=== PATIENT | female | born 1980 | race African-American/Black ===

== ENCOUNTER 2017-12-15 18:28 | Emergency (ER) | payer MEDICAID, OTHER ==
[~2017-12-15] VITALS: Ht 165.1 cm; Wt 88.0 kg
[~2017-12-15 18:28] MED LIST: IBUP200C5
[2017-12-15 20:02] LABS: CLARITY URINE CLEAR (CLEAR); COLOR URINE YELLOW (YELLOW); KETONES URINE TRACE (NEGATIVE); LEUKOCYTE ESTERASE URINE 2+ (NEGATIVE); NITRITE URINE NEGATIVE (NEGATIVE); OCCULT BLOOD URINE 1+ (NEGATIVE); PROTEIN URINE NEGATIVE (NEGATIVE); SPECIFIC GRAVITY URINE 1.035 (1.005-1.030)
[2017-12-15] MEDS ORDERED: ACETAMINOPHEN 325MG TABLET PO PRN (22:45)
[2017-12-15 23:26] LABS: BASOPHILS % 0.4 % (0.0-2.0); EOSINOPHILS % 3.7 % (0.0-5.0); HEMATOCRIT. 38.4 % (36.0-48.0); HEMOGLOBIN. 12.7 g/dL (12.0-16.0); MEAN CORPUSCULAR HEMOGLOBIN 29.7 pg (28.0-32.0); MEAN CORPUSCULAR VOLUME 89.3 fL (81.0-99.0); NEUTROPHILS % 55.9 % (40.0-76.0); PLATELET 172 x1000/uL (130-400); RED BLOOD CELL COUNT 4.29 mill/uL (4.2-5.4); RED CELL DISTRIBUTION WIDTH 13.4 % (11.6-14.6)
[2017-12-15 23:32] LABS: CHLORIDE 111 mEq/L (98-107)
[2017-12-15 23:44] LABS: B-HCG QUANTITATIVE < 1 mIU/mL (<3)
[2017-12-16 01:25] VITALS: BP 122/80
== END 2017-12-16 02:18 | disposition home or self-care (01) ==
LOC: ER 18:28
DX: N39.0 Urinary tract infection, site not specified (principal); N83.201 Unspecified ovarian cyst, right side; K76.0 Fatty (change of) liver, not elsewhere classified
CPT/HCPCS: 36415; 76700; 76830; 76856; 80053; 81003; 84702; 85025; 87086; 99285; Z7610

== ENCOUNTER 2019-11-26 21:40 | Emergency (ER) | payer OTHER ==
[~2019-11-26] VITALS: Ht 162.6 cm; Wt 95.6 kg
[2019-11-26] MEDS ORDERED: KETOROLAC 30MG/ML VIAL IM ONE (22:30)
[2019-11-26] MEDS ORDERED: TETANUS, DIPHTHERIA, PERTUSSIS VAC/PF 0.5ML (>7YR OLD) IM ONE (22:30)
[2019-11-26 22:47] VITALS: BP 145/92
== END 2019-11-26 23:05 | disposition home or self-care (01) ==
LOC: ER 21:40
DX: M79.5 Residual foreign body in soft tissue (principal); R23.4 Changes in skin texture
CPT/HCPCS: 81025; 90471; 90715; 96372; 99284; J1885

== ENCOUNTER 2021-12-01 12:51 | Emergency (ER) | payer OTHER ==
[~2021-12-01] VITALS: Ht 165.1 cm; Wt 87.0 kg
[2021-12-01 15:16] LABS: BASOPHILS % 0.7 % (0.0-2.0); EOSINOPHILS % 1.3 % (0.0-5.0); HEMATOCRIT. 41.2 % (36.0-48.0); HEMOGLOBIN. 13.5 g/dL (12.0-16.0); LYMPHOCYTES % 38.7 % (20.0-50.0); MEAN CORPUSCULAR HEMOGLOBIN 28.3 pg (28.0-32.0); MEAN CORPUSCULAR VOLUME 86.4 fL (81.0-99.0); MEAN PLATELET VOLUME 9.3 fl (7.4-10.4); MONOCYTES % 9.1 % (2.0-8.0); NEUTROPHILS % 50.2 % (40.0-76.0); PLATELET 204 x1000/uL (130-400); RED BLOOD CELL COUNT 4.77 mill/uL (4.2-5.4); RED CELL DISTRIBUTION WIDTH 13.8 % (11.6-14.6)
[2021-12-01 15:32] LABS: CHLORIDE 108 mEq/L (98-107)
[2021-12-01 15:41] LABS: HCG SCREEN NEGATIVE
[2021-12-01 19:12] VITALS: BP 127/71
== END 2021-12-01 19:12 | disposition home or self-care (01) ==
LOC: ER 12:51
DX: R55 Syncope and collapse (principal); Z71.6 Tobacco abuse counseling; F17.210 Nicotine dependence, cigarettes, uncomplicated; R03.0 Elevated blood-pressure reading, without diagnosis of hypertension; R79.89 Other specified abnormal findings of blood chemistry
CPT/HCPCS: 36415; 71045; 80053; 82962; 83880; 84703; 85025; 93005; 99285; 99406